=== PATIENT | male | born 1965 | race Caucasian/White ===

== ENCOUNTER 2017-05-09 06:33 | Emergency (ER) | payer OTHER ==
[~2017-05-09] VITALS: Ht 182.9 cm; Wt 122.5 kg
[~2017-05-09 06:33] MED LIST: CEPH500C PO; CIPR500T4 PO; HYDR1TAB PO; METR500T21 PO; ONDA4TAB11 PO
[2017-05-09] MEDS ORDERED: LACTATED RINGERS 1,000 ML IV ONE (07:41)
[2017-05-09] MEDS ORDERED: LACTATED RINGERS 1,000 ML IV SCH (07:45)
[2017-05-09] MEDS ORDERED: ONDANSETRON 4 MG/2 ML (SDV) Z0FRAN IVP ONE ×2 (07:45→10:00)
--- NOTE | 2017-05-09 07:49 | ED GI ---
General Chief Complaint: Abdominal/GI Problems Stated Complaint: VOMITING DIZZY Nursing Triage Note: PT C/O N/V/D AND DIZZINESS X 1 WEEK. Sepsis Screen: No Definite Risk Source of Information: Patient Exam Limitations: No Limitations History of Present Illness Date Seen by Provider: May 09, 2017 Time Seen by Provider: 07:35 Initial Comments He quit smoking in 2002. He denies any chest pain shortness of breath history of asthma, COPD, cardiac disease, swelling. Patient presents to ER by private conveyance with a chief complaint that for one and a half weeks now he's been experiencing what he thought was a cold with nasal congestion body aches malaise , no fevers or chills that started having nausea vomiting intolerance to fluid oral intake and diarrhea. He's used Pepto-Bismol but just threw it up and did not help his diarrhea. He feels very dehydrated, tired and lightheaded. He has no fever presently. Allergies and Home Medications Allergies Coded Allergies: No Known Drug Allergies (Unverified , 04/30/12) Home Medications Cephalexin Monohydrate 500 Mg Capsule, 1 EACH PO BID, #14 Prescribed by: SHANELLE PETE on 06/01/13 1742 Ciprofloxacin HCl 500 Mg Tablet, 500 MG PO BID, #14 Prescribed by: JONI SEBASTIAN on 08/15/15 1111 Metronidazole 500 Mg Tablet, 500 MG PO BID, #14 Prescribed by: JONI SEBASTIAN on 08/15/15 1111 Ondansetron 4 Mg Tab.rapdis, 4 MG PO Q6H PRN for NAUSEA/VOMITING, #8 Prescribed by: JONI SEBASTIAN on 08/15/15 1111 Review of Systems Constitutional: No chills, No diaphoresis, No fever, malaise Respiratory: Denies Cough, Denies Shortness of Air Cardiovascular: Denies Chest Pain, Denies Edema Gastrointestinal: Denies Abdomen Distended, Denies Abdominal Pain, Denies Constipated, Diarrhea, Nausea, Poor Appetite, Poor Fluid Intake, Vomiting Genitourinary: Denies Burning, Denies Discharge Musculoskeletal: No back pain, No joint pain Skin: No pruritus, No rash Psychiatric/Neurological: Denies Headache, Denies Numbness, Denies Paresthesia Past Wotatgm-Bzuoub-Tuskxb Hx Patient Social History Alcohol Use: Denies Use Recreational Drug Use: No Smoking Status: Former Smoker 2nd Hand Smoke Exposure: No Recent Foreign Travel: No Contact w/Someone Who Travel: No Recent Infectious Disease Expo: No Recent Hopitalizations: No Immunizations Up To Date Tetanus Booster (TDap): More than 5yrs Surgeries History of Surgeries: Yes Surgeries: Gallbladder, Orthopedic Respiratory History of Respiratory Disorde: No Cardiovascular History of Cardiac Disorders: No Neurological History of Neurological Disord: No Reproductive System Hx Reproductive Disorders: No Sexually Transmitted Disease: No Gastrointestinal History of Gastrointestinal Di: No Musculoskeletal History of Musculoskeletal Dis: No Endocrine History of Endocrine Disorders: No Cancer History of Cancer: No Psychosocial History of Psychiatric Problem: No Integumentary History of Skin or Integumenta: No Blood Transfusions History of Blood Disorders: No Family Medical History Significant Family History: No Pertinent Family Hx Physical Exam Vital Signs VS - Last 72 Hours, by Label 05/09/17 07:25 Temp 97.0 Pulse 71 Resp 16 B/P (MAP) 109/78 (88) Pulse Ox 97 O2 Delivery Room Air Capillary Refill : Less Than 3 Seconds General Appearance: WD/WN, mild distress HEENT: PERRL/EOMI, TMs normal, pharynx normal Neck: non-tender, supple, normal inspection Respiratory: chest non-tender, lungs clear, normal breath sounds, no respiratory distress, no accessory muscle use Cardiovascular: normal peripheral pulses, regular rate, rhythm, no edema Peripheral Pulses: 2+ Dorsalis Pedis (R), 2+ Left Dors-Pedis (L) Gastrointestinal: normal bowel sounds (fairly active), soft, no organomegaly, No rebound, tenderness (mild tenderness all 4 quadrants without any specific pain over the McBurney's point or positive Flores sign) Extremities: normal inspection, no pedal edema, normal capillary refill Neurologic/Psychiatric: alert, normal mood/affect, oriented x 3 Skin: normal color, warm/dry Lymphatic: no adenopathy Progress/Results/Core Measures Results/Orders Lab Results Laboratory Tests Test 05/09/17 08:20 Range/Units White Blood Count 6.4 4.3-11.0 10^3/uL Red Blood Count 5.37 4.35-5.85 10^6/uL Hemoglobin 15.5 13.3-17.7 G/DL Hematocrit 45 40-54 % Mean Corpuscular Volume 84 80-99 FL Mean Corpuscular Hemoglobin 29 25-34 PG Mean Corpuscular Hemoglobin Concent 34 32-36 G/DL Red Cell Distribution Width 13.4 10.0-14.5 % Platelet Count 238 130-400 10^3/uL Mean Platelet Volume 10.1 7.4-10.4 FL Neutrophils (%) (Auto) 70 42-75 % Lymphocytes (%) (Auto) 21 12-44 % Monocytes (%) (Auto) 8 0-12 % Eosinophils (%) (Auto) 1 0-10 % Basophils (%) (Auto) 1 0-10 % Neutrophils # (Auto) 4.5 1.8-7.8 X 10^3 Lymphocytes # (Auto) 1.3 1.0-4.0 X 10^3 Monocytes # (Auto) 0.5 0.0-1.0 X 10^3 Eosinophils # (Auto) 0.1 0.0-0.3 10^3/uL Basophils # (Auto) 0.0 0.0-0.1 10^3/uL Sodium Level 143 135-145 MMOL/L Potassium Level 3.5 L 3.6-5.0 MMOL/L Chloride Level 109 H 98-107 MMOL/L Carbon Dioxide Level 22 21-32 MMOL/L Anion Gap 12 5-14 MMOL/L Blood Urea Nitrogen 14 7-18 MG/DL Creatinine 0.77 0.60-1.30 MG/DL Estimat Glomerular Filtration Rate > 60 BUN/Creatinine Ratio 18 Glucose Level 85 70-105 MG/DL Calcium Level 9.2 8.5-10.1 MG/DL Total Bilirubin 0.8 0.1-1.0 MG/DL Aspartate Amino Transf (AST/SGOT) 35 H 5-34 U/L Alanine Aminotransferase (ALT/SGPT) 42 0-55 U/L Alkaline Phosphatase 90 40-136 U/L C-Reactive Protein High Sensitivity 0.16 0.00-0.50 MG/DL Total Protein 7.1 6.4-8.2 GM/DL Albumin 4.2 3.2-4.5 GM/DL My Orders Orders - PHYLICIA CONNELL Cbc With Automated Diff (05/09/17 07:41) Comprehensive Metabolic Panel (05/09/17 07:41) Hs C Reactive Protein (05/09/17 07:41) Saline Lock/Iv-Start (05/09/17 07:41) Lactated Ringers (Lr 1000 Ml Iv Solution (05/09/17 07:41) Lactated Ringers (Lr 1000 Ml Iv Solution (05/09/17 07:45) Ondansetron Injection (Zofran Injectio (05/09/17 07:45) Ondansetron Injection (Zofran Injectio (05/09/17 10:00) Medications Given in ED Current Medications Medications Dose Ordered Sig/Sonia Route Start Time Stop Time Status Last Admin Dose Admin Lactated Ringer's 1,000 ml @ 0 mls/hr Q0M ONCE IV 05/09/17 07:41 05/09/17 07:43 DC 05/09/17 08:15 1,000 MLS/HR Ondansetron HCl 4 mg ONCE ONCE IVP 05/09/17 07:45 05/09/17 07:46 DC 05/09/17 08:25 4 MG Vital Signs/I&O Vital Sign - Last 12Hours 05/09/17 07:25 Temp 97.0 Pulse 71 Resp 16 B/P (MAP) 109/78 (88) Pulse Ox 97 O2 Delivery Room Air Blood Pressure Mean: 88 Progress Note #1: Time: 07:47 Progress Note We discussed futility of nasal flu swab testing and agreed to do just conservative therapy. Return of chest some basic labs KO giving him some fluids to rehydrate him as well as Zofran. If we can break the cycle of nausea give him fluid balance improved then he will probably do well on Imodium and other conservative therapy. Progress Note #2: Time: 10:09 Progress Note Patient's nausea has improved significant family. He is feeling much better after fluids. Departure Impression Impression: Primary Impression: Nausea and vomiting Qualified Codes: R11.2 - Nausea with vomiting, unspecified Additional Impression: Dehydration Disposition: 01 HOME, SELF-CARE Condition: Improved Departure-Patient Inst. Decision time for Depature: 10:10 Referrals: NO,LOCAL PHYSICIAN (PCP/Family) Primary Care Physician Patient Instructions: Viral Upper Respiratory Infection, Adult (DC) Scripts Ondansetron (Ondansetron Odt) 4 Mg Tab.rapdis 4 MG PO Q6H Y for NAUSEA/VOMITING, #8 TAB 0 Refills Prov: PHYLICIA CONNELL 05/09/17 PHYLICIA CONNELL May 09, 2017 07:49
[2017-05-09 08:31] LABS: BASOPHILS % (AUTO) 1 % (0-10); EOSINOPHILS # (AUTO) 0.1 10^3/uL (0.0-0.3); EOSINOPHILS % (AUTO) 1 % (0-10); HEMATOCRIT 45 % (40-54); HEMOGLOBIN 15.5 G/DL (13.3-17.7); LYMPHOCYTES # (AUTO) 1.3 X 10^3 (1.0-4.0); LYMPHOCYTES % (AUTO) 21 % (12-44); MEAN CORPUSCULAR HEMOGLOBIN 29 PG (25-34); MEAN CORPUSCULAR HGB CONC 34 G/DL (32-36); MEAN CORPUSCULAR VOLUME 84 FL (80-99); MEAN PLATELET VOLUME 10.1 FL (7.4-10.4); MONOCYTES # (AUTO) 0.5 X 10^3 (0.0-1.0); MONOCYTES % (AUTO) 8 % (0-12); NEUTROPHILS # (AUTO) 4.5 X 10^3 (1.8-7.8); NEUTROPHILS % (AUTO) 70 % (42-75); PLATELET COUNT 238 10^3/uL (130-400); RED BLOOD COUNT 5.37 10^6/uL (4.35-5.85); RED CELL DISTRIBUTION WIDTH 13.4 % (10.0-14.5); WHITE BLOOD COUNT 6.4 10^3/uL (4.3-11.0)
[2017-05-09 08:55] LABS: ALANINE AMINOTRANSFERASE 42 U/L (0-55); ALBUMIN 4.2 GM/DL (3.2-4.5); ALKALINE PHOSPHATASE 90 U/L (40-136); BILIRUBIN,TOTAL 0.8 MG/DL (0.1-1.0); BUN/CREATININE RATIO 18; CALCIUM 9.2 MG/DL (8.5-10.1); CARBON DIOXIDE 22 MMOL/L (21-32); CHLORIDE 109 MMOL/L (98-107); CREATININE SERUM 0.77 MG/DL (0.60-1.30); GFR ESTIMATED > 60; GLUCOSE 85 MG/DL (70-105); POTASSIUM 3.5 MMOL/L (3.6-5.0); SODIUM 143 MMOL/L (135-145); TOTAL PROTEIN 7.1 GM/DL (6.4-8.2)
[2017-05-09] MEDS ORDERED: ONDA4TAB11 PO (10:11)
[2017-05-09 10:35] VITALS: BP 118/72
== END 2017-05-09 10:22 | disposition home or self-care (01) ==
LOC: EDUNIT# 06:33 → ER 06:36
DX: R11.2 Nausea with vomiting, unspecified (principal); E86.0 Dehydration; Z87.891 Personal history of nicotine dependence
CPT/HCPCS: 36415; 80053; 85025; 86141; 96361; 96374; 96376

== ENCOUNTER 2019-01-06 20:19 | Emergency (ER) | payer OTHER ==
[~2019-01-06] VITALS: Ht 185 cm; Wt 128.4 kg
[~2019-01-06 20:19] MED LIST changes: +METR-145 PO; -METR500T21 PO
[2019-01-06] MEDS ORDERED: TETANUS,DIPTH,PERTUSS P/F (BOOSTRIX) 0.5 ML VIAL IM ONE (20:45)
[2019-01-06] MEDS ORDERED: LIDOCAINE 1% INJ 20 ML 20 ML VIAL INJ ONE (21:00)
--- NOTE | 2019-01-06 21:07 | Diagnostic Imaging Report ---
EXAMINATION: Right hand at 8:44 PM INDICATION: Laceration to 5th metacarpal 3 views were obtained. There are no prior studies available for comparison. There is no fracture, dislocation or acute bony abnormality evident. There does appear to be soft tissue laceration medial to the 5th metacarpophalangeal joint. There is no sign of a radiopaque foreign body in this area. The soft tissues are otherwise unremarkable. IMPRESSION: There is evidence of a soft tissue injury to the medial aspect of the region of the 5th metacarpophalangeal joint. There is no sign of a radiopaque foreign body in this area nor is there any evidence for a fracture. Dictated by: Dictated on workstation # [id number]
[2019-01-06] MEDS ORDERED: RX-TRIMETH/SULFA. 160-800 MG (BACTRIM DS) TAB PPK#2 PO STA (21:28)
[2019-01-06] MEDS ORDERED: SULF1TAB35 PO (21:33)
--- NOTE | 2019-01-06 21:33 | ED Upper Extremity ---
General Chief Complaint: Laceration Stated Complaint: GLASS IN R HAND Nursing Triage Note: Patient ambulatory to ER room 9 with complaint of laceration to right hand. Patient states he was trying to fix a window when the glass broke. He believes he has a piece of glass in the laceration. Nursing Sepsis Screen: No Definite Risk Allergies and Home Medications Allergies Coded Allergies: No Known Drug Allergies (Unverified , 04/30/12) Home Medications Cephalexin Monohydrate 500 Mg Capsule, 1 EACH PO BID Prescribed by: SHANELLE PETE on 06/01/13 1742 Ciprofloxacin HCl 500 Mg Tablet, 500 MG PO BID Prescribed by: JONI SEBASTIAN on 08/15/15 1111 Metronidazole 500 Mg Tablet, 500 MG PO BID Prescribed by: JONI SEBASTIAN on 08/15/15 1111 Ondansetron 4 Mg Tab.rapdis, 4 MG PO Q6H PRN for NAUSEA/VOMITING Prescribed by: JONI SEBASTIAN on 08/15/15 1111 Ondansetron 4 Mg Tab.rapdis, 4 MG PO Q6H PRN for NAUSEA/VOMITING Prescribed by: PHYLICIA CONNELL on 05/09/17 1011 Past Kgyogaf-Fmomcj-Zzwzwe Hx Patient Social History Alcohol Use: Rarely Uses Recreational Drug Use: No Smoking Status: Never a Smoker 2nd Hand Smoke Exposure: No Recent Foreign Travel: No Contact w/Someone Who Travel: No Recent Infectious Disease Expo: No Recent Hopitalizations: No Physical Abuse: No Sexual Abuse: No Mistreated: No Fear: No Immunizations Up To Date Tetanus Booster (TDap): More than 5yrs PED Vaccines UTD: Yes Seasonal Allergies Seasonal Allergies: No Past Medical History Surgeries: Yes Gallbladder, Orthopedic Respiratory: No Cardiac: No Neurological: No Reproductive Disorders: No Sexually Transmitted Disease: No Genitourinary: No Gastrointestinal: No Musculoskeletal: No Endocrine: No HEENT: No Cancer: No Psychosocial: No Integumentary: No Blood Disorders: No Family Medical History No Pertinent Family Hx Physical Exam Vital Signs Vital Signs - First Documented 01/06/19 20:20 Temp 36.3 Pulse 93 Resp 14 B/P (MAP) 149/109 (122) Pulse Ox 98 O2 Delivery Room Air Capillary Refill : Less Than 3 Seconds Height, Weight, BMI Height: 6'0" Weight: 270lbs. oz. 122.489662av; 37.00 BMI Method:Stated Progress/Results/Core Measures Results/Orders My Orders Orders - JEFF CARRILLO DO Dipht,Pertuss(Acell),Tet Adult (Boostrix (01/06/19 20:45) Hand, Right, 3 Views (01/06/19 20:40) Lidocaine 1% Inj 20 Ml (Xylocaine 1% Inj (01/06/19 21:00) Rx-Trimeth/Sulfameth Ds Tab (Rx-Bactrim/ (01/06/19 21:28) Ed Ortho Supplies Order (01/06/19 21:28) Wound Dressing-Ed (01/06/19 21:28) Medications Given in ED Current Medications Medications Dose Ordered Sig/Sonia Route Start Time Stop Time Status Last Admin Dose Admin Diphtheria/ Tetanus/Acell Pertussis 0.5 ml ONCE ONCE IM 01/06/19 20:45 01/06/19 20:46 DC 01/06/19 20:48 0.5 ML Vital Signs/I&O 01/06/19 20:20 Temp 36.3 Pulse 93 Resp 14 B/P (MAP) 149/109 (122) Pulse Ox 98 O2 Delivery Room Air Blood Pressure Mean: 122 Diagnostic Imaging Comments XRAYS RIGHT HAND--NO FRACTURE OR FOREIGN BODY, SOFT TISSUE LACERATION, PER RADIOLOGIST REPORT AT 2130 Reviewed: Reviewed by Me Departure Impression Primary Impression: LACERATION RIGHT HAND WITH EXTENSOR TENDON INJURY Additional Impression: Hsjafzjfax-mnojwhfij-uawided (DPT) vaccination administered at current visit Disposition: 01 HOME, SELF-CARE Condition: Stable Departure-Patient Inst. Referrals: ANGIE CHAVEZ MD NO,LOCAL PHYSICIAN (PCP) Primary Care Physician Patient Instructions: Laceration Repair With Stitches (DC), Tendon Laceration (DC), Diphtheria and Tetanus Toxoids, and Acellular Pertussis Vaccine Add. Discharge Instructions: LEAVE DRESSING IN PLACE WEAR SPLINT AT ALL TIMES DO NOT GET AREA WET TYLENOL AND MOTRIN NEEDED FOR PAIN FOLLOW UP WITH DR. CHAVEZ/JANNET 4 STATES ON TUESDAY FOR FURTHER CARE All discharge instructions reviewed with patient and/or family. Voiced understanding. Scripts Sulfamethoxazole/Trimethoprim (Bactrim Ds Tablet) 1 Each Tablet 1 EACH PO BID, #20 TAB Prov: JEFF CARRILLO DO 01/06/19 JEFF CARRILLO DO Jan 06, 2019 21:33
[2019-01-06 21:52] VITALS: BP 140/107
== END 2019-01-06 21:52 | disposition home or self-care (01) ==
LOC: ER 20:19 → EDUNIT# 20:19 → ER 21:52
DX: S61.411A Laceration without foreign body of right hand, initial encounter (principal); Z23 Encounter for immunization; W25.XXXA Contact with sharp glass, initial encounter
CPT/HCPCS: 26410; 73130; 90471; 90715